=== PATIENT | female | born 1975 | race Caucasian/White ===

== ENCOUNTER 2016-10-17 19:58 | Emergency (ER) | payer MEDICAID ==
[~2016-10-17] VITALS: Ht 152.4 cm; Wt 60.8 kg
[2016-10-17 20:04] VITALS: BP 134/86
[2016-10-17 20:42] LABS: BASOPHILS # (AUTO) 0.2 K/uL (0.00-0.22); EOSINOPHILS # (AUTO) 0.5 K/uL (0-0.4); EOSINOPHILS % (AUTO) 6.1 % (0.0-4.0); HEMATOCRIT 36.1 % (36-48); LYMPHOCYTES # (AUTO) 3.1 K/uL (2.5-16.5); LYMPHOCYTES % (AUTO) 39.4 % (20.5-51.1); MEAN CORPUSCULAR HEMOGLOBIN 31 pg (27-31); MEAN CORPUSCULAR HGB CONC 33 g/dL (33-37); MEAN CORPUSCULAR VOLUME 94 fL (80-94); MONOCYTES # (AUTO) 0.7 K/uL (0.8-1.0); MONOCYTES % (AUTO) 9.1 % (1.7-9.3); NEUTROPHILS # (AUTO) 3.3 K/uL (1.8-7.7); NEUTROPHILS % (AUTO) 43.4 % (42.2-75.2); PLATELET COUNT (AUTO) 216 K/uL (140-450); RED BLOOD CELL COUNT(AUTO) 3.86 MIL/uL (4.20-5.40); RED CELL DISTRIBUTION WIDTH 12.1 % (11.6-13.7); WHITE BLOOD COUNT (AUTO) 7.8 K/uL (4.8-10.8)
[2016-10-17 21:03] LABS: PARTIAL THROMBOPLASTIN TIME 23.5 secs (22-35.6)
[2016-10-17 21:12] LABS: ANION GAP 11.3 (8-16); CALCIUM 8.8 mg/dL (8.5-10.1); CARBON DIOXIDE 27.6 mmol/L (21-32); CREATININE 0.9 mg/dL (0.6-1.3); POTASSIUM 3.9 mmol/L (3.5-5.1)
[2016-10-17 21:14] LABS: PROTHROMBIN TIME 9.6 secs (10.8-13.4)
[2016-10-17 21:19] LABS: ALBUMIN 3.9 g/dL (3.4-5.0); TOTAL BILIRUBIN 0.3 mg/dL (0.0-1.0); TOTAL PROTEIN, SERUM 7.3 g/dL (6.4-8.2)
--- NOTE | 2016-10-17 23:42 | NUR ---
TO ER BED4
--- NOTE | 2016-10-17 23:46 | NUR ---
PATIENT PRESENTS TO ED WITH C/O BACK PAIN AND DIFF BREATHING WHEN BACK HURTS AND LEFT ARM HURTS WELL. PT DENIES N/V/D; SKIN IS PINK/WARM/DRY; AAOX4 WITH EVEN AND STEADY GAIT; LUNGS CLEAR BL; HR EVEN AND REGULAR; PT DENIES ANY FEVER, CP, OR COUGH AT THIS TIME; PATIENT STATES PAIN OF 8/10 AT THIS TIME; VSS; PATIENT POSITIONED FOR COMFORT; HOB ELEVATED; BEDRAILS UP X2; BED DOWN. ER MD MADE AWARE OF PT STATUS.
--- NOTE | 2016-10-18 00:40 | NUR ---
DR ARGUELLO AT BEDSIDE
[2016-10-18 00:52] VITALS: BP 130/85
--- NOTE | 2016-10-18 00:53 | NUR ---
Patient discharged with v/s stable. Written and verbal after care instructions given and explained. Patient alert, oriented and verbalized understanding of instructions. Ambulatory with steady gait. All questions addressed prior to discharge. ID band removed. Patient advised to follow up with PMD. Rx of CIPRO AND MOTRIN given. Patient educated on indication of medication including possible reaction and side effects. Opportunity to ask questions provided and answered.
== END 2016-10-18 00:53 | disposition home or self-care (01) ==
LOC: MED 19:58
DX: R07.89 Other chest pain (principal); N12 Tubulo-interstitial nephritis, not specified as acute or chronic; Z87.442 Personal history of urinary calculi
CPT/HCPCS: 36415; 71010; 80053; 81002; 81025; 83880; 84484; 85025; 85610; 85730; 93005; 99285

== ENCOUNTER 2021-05-03 20:24 | Emergency (ER) | payer BC, MEDICAID ==
[~2021-05-03] VITALS: Ht 147.3 cm; Wt 62.8 kg
[2021-05-03 20:35] VITALS: BP 155/89
--- NOTE | 2021-05-03 20:48 | NUR ---
PT TAKEN TO BED 3
--- NOTE | 2021-05-03 21:17 | NUR ---
Dr. Fisher examining patient.
[2021-05-03] MEDS ORDERED: NACL 0.9% 1,000 ML IV ONE (21:20)
[2021-05-03] MEDS ORDERED: ACETAMINOPHEN EXTRA STRENGTH 500 MG TAB PO ONE (21:35)
[2021-05-03 21:46] LABS: BASOPHILS % (AUTO) 0.4 % (0.0-2.0); EOSINOPHILS % (AUTO) 0.4 % (0.0-4.0); HEMATOCRIT 36.3 % (36-48); HEMOGLOBIN 12.1 g/dL (12.0-16.0); LYMPHOCYTES # (AUTO) 1.7 K/uL (2.5-16.5); LYMPHOCYTES % (AUTO) 16.7 % (20.5-51.1); MEAN CORPUSCULAR HEMOGLOBIN 31 pg (27-31); MEAN CORPUSCULAR HGB CONC 34 g/dL (33-37); MEAN CORPUSCULAR VOLUME 92.9 fL (80-94); MONOCYTES # (AUTO) 0.6 K/uL (0.8-1.0); MONOCYTES % (AUTO) 5.4 % (1.7-9.3); NEUTROPHILS # (AUTO) 7.8 K/uL (1.8-7.7); NEUTROPHILS % (AUTO) 77.1 % (42.2-75.2); PLATELET COUNT (AUTO) 268 K/uL (140-450); RED BLOOD CELL COUNT(AUTO) 3.91 MIL/uL (4.20-5.40); RED CELL DISTRIBUTION WIDTH 13.3 % (11.6-13.7); WHITE BLOOD COUNT (AUTO) 10.1 K/uL (4.8-10.8)
--- NOTE | 2021-05-03 22:30 | NUR ---
PATIENT AMBULATED TO THE BATHROOM AND COLLECTED URINE FROM PATIENT.
[2021-05-03 23:30] LABS: ANION GAP 14.1 (8-16); CARBON DIOXIDE 26.4 mmol/L (21-32); POTASSIUM 3.5 mmol/L (3.5-5.1); TOTAL BILIRUBIN 0.3 mg/dL (0.0-1.0)
--- NOTE | 2021-05-04 00:08 | NUR ---
ERMD AT BEDSIDE FOR RE-EXAMINATION OF PATIENT.
--- NOTE | 2021-05-04 00:22 | NUR ---
IV removed, catheter intact and site benign. Applied folded 4x4 gauze and tape to stop bleeding.
--- NOTE | 2021-05-04 00:49 | NUR ---
Patient discharged with v/s stable. Written and verbal after care instructions given and explained. Patient verbalized understanding. Ambulatory with steady gait. ID band removed. All questions addressed prior to discharge. Advised to follow up with PMD.
[2021-05-04 00:58] VITALS: BP 130/77
== END 2021-05-04 00:49 | disposition home or self-care (01) ==
LOC: MED 20:24
DX: R10.13 Epigastric pain (principal); R50.9 Fever, unspecified; R53.1 Weakness; R22.0 Localized swelling, mass and lump, head; Z20.822 Contact with and (suspected) exposure to COVID-19
CPT/HCPCS: 36415; 71045; 80053; 81002; 84484; 85025; 87426; 87804; 96360; 99284; J7030; Q0092

== ENCOUNTER 2021-08-28 14:46 | Inpatient (IN) | payer BC, SELFPAY ==
[~2021-08-28] VITALS: Ht 154.9 cm; Wt 66.2 kg
[2021-08-28 14:51] VITALS: BP 155/95
--- NOTE | 2021-08-28 14:58 | NUR ---
PT AMBULATED TO BED 12
--- NOTE | 2021-08-28 15:07 | NUR ---
45 Y/O FEMALE BIB C/O OF EPIGASTRIC PAIN X 1 HOUR WITH NAUSEA . PT STATES RADIATING PAIN TO THE UPPER LEFT SHOULDER AND CHILLS. PT ABDOMEN IS SEOFT, TENDER TO TOUCH. ACTIVE BOWEL SOUNDS IN ALL FOUR QUADRANTS. LAST BOWEL MOVEMENT X YESTERDAY. PT REPORTS TAKING IBUPROFEN WITH MILD RELIEF. DENIES V/D; SKIN IS PINK/WARM/DRY; AAOX4 WITH EVEN AND STEADY GAIT; LUNGS CLEAR BL; HR EVEN AND REGULAR; PT DENIES ANY FEVER, CP, SOB, OR COUGH AT THIS TIME; PATIENT STATES PAIN OF 10/10 AT THIS TIME; VSS; PATIENT POSITIONED FOR COMFORT; HOB ELEVATED; BEDRAILS UP X1; BED DOWN. ER MD MADE AWARE OF PT STATUS. PMEDHX: DENIES NKA
[2021-08-28] MEDS ORDERED: FAMOTIDINE 20 MG TAB PO ONE (15:10)
[2021-08-28] MEDS ORDERED: ALUMINUM HYD/MAG/SIMETHICONE 30 ML UDC PO ONE (15:10)
[2021-08-28 15:16] LABS: BILIRUBIN,URINE NEGATIVE (NEGATIVE); BLOOD, URINE NEGATIVE (NEGATIVE); COLOR,URINE YELLOW (YELLOW); LEUKOCYTE ESTERASE ,URINE TRACE (NEGATIVE); NITRITE, URINE POSITIVE (NEGATIVE); UGLUCOSE NEGATIVE (NEGATIVE)
[2021-08-28 15:20] LABS: APPEARANCE,URINE HAZY (CLEAR)
[2021-08-28 15:31] LABS: RBC,URINE NONE SEEN /HPF (0-5)
--- NOTE | 2021-08-28 15:43 | NUR ---
labs drawn at bedside, left with phleb at this time
[2021-08-28 15:55] LABS: BASOPHILS # (AUTO) 0.1 K/uL (0.00-0.22); BASOPHILS % (AUTO) 0.4 % (0.0-2.0); EOSINOPHILS # (AUTO) 0.1 K/uL (0-0.4); EOSINOPHILS % (AUTO) 0.5 % (0.0-4.0); HEMATOCRIT 33.3 % (36-48); LYMPHOCYTES # (AUTO) 1.1 K/uL (2.5-16.5); LYMPHOCYTES % (AUTO) 7.5 % (20.5-51.1); MEAN CORPUSCULAR HEMOGLOBIN 30 pg (27-31); MEAN CORPUSCULAR HGB CONC 33 g/dL (33-37); MEAN CORPUSCULAR VOLUME 89.8 fL (80-94); MONOCYTES # (AUTO) 0.6 K/uL (0.8-1.0); MONOCYTES % (AUTO) 4.2 % (1.7-9.3); NEUTROPHILS # (AUTO) 12.7 K/uL (1.8-7.7); NEUTROPHILS % (AUTO) 87.4 % (42.2-75.2); PLATELET COUNT (AUTO) 232 K/uL (140-450); RED BLOOD CELL COUNT(AUTO) 3.71 MIL/uL (4.20-5.40); RED CELL DISTRIBUTION WIDTH 13.8 % (11.6-13.7); WHITE BLOOD COUNT (AUTO) 14.5 K/uL (4.8-10.8)
[2021-08-28 16:25] LABS: ALBUMIN 3.5 g/dL (3.4-5.0); ANION GAP 14.2 (8-16); CARBON DIOXIDE 25.2 mmol/L (21-32); CREATININE 0.8 mg/dL (0.6-1.3); POTASSIUM 3.4 mmol/L (3.5-5.1); TOTAL BILIRUBIN 0.5 mg/dL (0.0-1.0)
[2021-08-28] MEDS ORDERED: cefTRIAXone 1,000 MG VIAL ONE (17:28)
[2021-08-28] MEDS ORDERED: metroNIDAZOLE 500 MG/NS PREMIX 100 ML IV ONE (18:05)
--- NOTE | 2021-08-28 18:22 | NUR ---
germaine swabbed and taken to lab
[2021-08-28] MEDS ORDERED: DEXT 5% / NACL 0.9% 500 ML IV ONE (19:05)
[2021-08-28] MEDS ORDERED: MORPHINE SULFATE 2 MG/ML SYR IVP PRN (19:05)
--- NOTE | 2021-08-28 19:24 | NUR ---
report given to roman merchant
--- NOTE | 2021-08-28 19:43 | NUR ---
DR TERESA (SURGEON) AT BEDSIDE EXAMINING PT
--- NOTE | 2021-08-28 21:16 | NUR ---
ORAL CONTRAST GIVEN TO PT BY RADIOLOGY
[2021-08-28] MEDS ORDERED: DOCUSATE SODIUM 100 MG GELCAP PO PRN (21:55)
[2021-08-28] MEDS ORDERED: guaiFENesin DM 200/20 MG-10 ML 10 ML UDC PO PRN (21:55)
[2021-08-28] MEDS ORDERED: ZOLPIDEM 5 MG TAB PO PRN (21:55)
[2021-08-28] MEDS ORDERED: POTASSIUM CHLORIDE 10 MEQ TABER PO PRN (21:55)
[2021-08-28] MEDS ORDERED: ONDANSETRON 4 MG/2 ML VIAL IM/IVP PRN (21:55)
[2021-08-28] MEDS: DEXT 5% /NACL 0.9% 1,000 ML IV SCH (21:55)
[2021-08-28] MEDS ORDERED: ACETAMINOPHEN 325 MG TAB PO PRN (21:55)
[2021-08-28] MEDS ORDERED: HYDROcodone/APAP 7.5/325 MG 1 TAB PO PRN (21:55)
--- NOTE | 2021-08-28 22:29 | NUR ---
Patient will be admitted to care of DR ARIAS. Admited to TELE. Will go to room 120B. Belongings list completed. Report to MICHELLE PABLO.
[2021-08-28 22:40] VITALS: BP 147/77
--- NOTE | 2021-08-28 22:40 | NUR ---
RECEIVED REPORT FROM ER NURSE FOR CONTINUITY OF CARE.PT AWAKE, ALERT AND ORIENTED. PT ON ROOM AIR, BREATHING EQUAL AND UNLABORED.IV ON R AC G20, INFUSING WELL.PT AFEBRILE, SR 86 ON TELE. SKIN WARM,DRY AND INTACT. DENIES PAIN AT THE MOMENT. MRSA SWAB DONE. ORIENTED TO ROOM AND CALL LIGHT.BED IN LOW AND LOCKED POSITION. ALL SAFETY PRECAUTIONS IN PLACE.WILL CONTINUE TO MONITOR.
[2021-08-28 22:51] LABS: CHOL/HDL RATIO 4.6 (1-4.5); FREE T4 (FREE THYROXINE) 1.21 ng/dL (0.76-1.46); THYROID STIMULATING HORMONE 2.09 uIU/mL (0.34-3.74)
[2021-08-28 23:02] LABS: PROTHROMBIN TIME 9.4 secs (10.8-13.4)
[2021-08-28 23:20] LABS: BARBITURATE, URINE NEGATIVE ng/ml (NEG <=200); BENZODIAZEPINE, URINE NEGATIVE ng/mL (NEG <=200); CANNABINOID, URINE NEGATIVE ng/mL (NEG <=50); COCAINE, URINE NEGATIVE ng/mL (NEG <=300); OPIATE, URINE NEGATIVE ng/mL (NEG <=2000); PHENCYCLIDINE SCREEN,URINE NEGATIVE ng/mL (NEG <=25)
[2021-08-28] MEDS ORDERED: PIPERACILLIN/TAZOBACTAM 3.375 GM VIAL IV ONE (23:50)
--- NOTE | 2021-08-29 00:20 | NUR ---
PT WAS PICKED UP BY RADIOLOGY AND TRANSPORTED FOR CT OF ABDOMEN.PT AMBULATED TO WHEELCHAIR. NO DISTRESS NOTED. WILL CONTINUE TO MONITOR.
[2021-08-29] MEDS: PIPERACILLIN/TAZOBACTAM 3.375 GM in DEXTROSE 5% 50 ML IV SCH ×5 (00:33→23:35)
--- NOTE | 2021-08-29 00:45 | NUR ---
SCHEDULED ANTIBIOTICS GIVEN. PT TOLERATED WELL.NO DISTRESS NOTED.WILL CONTINUE TO MONITOR.
--- NOTE | 2021-08-29 00:45 | NUR ---
PT CAME BACK FROM CT. PT NOT IN ANY DISTRESS. WILL CONTINUE TO MONITOR.
[2021-08-29 04:00] VITALS: BP 152/82
[2021-08-29 05:21] LABS: CARBON DIOXIDE 25.4 mmol/L (21-32); CREATININE 0.7 mg/dL (0.6-1.3); POTASSIUM 3.4 mmol/L (3.5-5.1)
[2021-08-29 05:46] LABS: BASOPHILS % (AUTO) 0.8 % (0.0-2.0); EOSINOPHILS # (AUTO) 0.1 K/uL (0-0.4); EOSINOPHILS % (AUTO) 2.1 % (0.0-4.0); HEMATOCRIT 31.9 % (36-48); HEMOGLOBIN 10.6 g/dL (12.0-16.0); LYMPHOCYTES # (AUTO) 1.4 K/uL (2.5-16.5); LYMPHOCYTES % (AUTO) 24.8 % (20.5-51.1); MEAN CORPUSCULAR HEMOGLOBIN 30 pg (27-31); MEAN CORPUSCULAR HGB CONC 33 g/dL (33-37); MEAN CORPUSCULAR VOLUME 90.4 fL (80-94); MONOCYTES # (AUTO) 0.6 K/uL (0.8-1.0); MONOCYTES % (AUTO) 9.9 % (1.7-9.3); NEUTROPHILS # (AUTO) 3.6 K/uL (1.8-7.7); NEUTROPHILS % (AUTO) 62.4 % (42.2-75.2); PLATELET COUNT (AUTO) 223 K/uL (140-450); RED BLOOD CELL COUNT(AUTO) 3.53 MIL/uL (4.20-5.40); RED CELL DISTRIBUTION WIDTH 13.9 % (11.6-13.7); WHITE BLOOD COUNT (AUTO) 5.8 K/uL (4.8-10.8)
[2021-08-29] MEDS ORDERED: PIPERACILLIN/TAZOBACTAM 3.375 GM VIAL IV ONE (06:07)
[2021-08-29] MEDS: DEXT 5% /NACL 0.9% 1,000 ML IV SCH ×3 (06:15→23:30)
[2021-08-29] MEDS ORDERED: MORPHINE SULFATE 2 MG/ML SYR IVP PRN (07:18)
--- NOTE | 2021-08-29 07:30 | NUR ---
RECEIVED REPORT FROM MAINTENANCE HELPER NURSE FOR CONTINUITY OF CARE. PT ASLEEP IN BED. BREATHING SYMMETRICAL. FLACC O. RAC 20G RUNNING D5NS AT 120CC/HR. CALL LIGHT WITHIN REACH. ALL SAFETY MEASURES IN PLACE.
--- NOTE | 2021-08-29 07:37 | NUR ---
ENDORSED TO AM SHIFT NURSE FOR CONTINUITY OF CARE. PT IS STABLE.
[2021-08-29 08:00] VITALS: BP 125/75
[2021-08-29] MEDS: PANTOPRAZOLE 40 MG TABEC PO SCH (09:03)
[2021-08-29] MEDS ORDERED: SEVOFLURANE 250 ML BTL INH ONE (09:30)
--- NOTE | 2021-08-29 10:11 | NUR ---
PT TRANSFERRED TO [facility]
--- NOTE | 2021-08-29 14:42 | NUR ---
PT IN BED, AWAKE/ALERT, POLISH SPEAKING. BREATHING SYMMETRICAL. DENIES PAIN AT THIS TIME. FAMILY AT BEDSIDE DOING VISIT. CALL LIGHT WITHIN REACH. ALL SAFETY MEASURES IN PLACE. ENCOURAGED TO ALWAYS CALL FOR ASSISTANCE.
[2021-08-29 16:00] VITALS: BP 127/78
--- NOTE | 2021-08-29 16:17 | NUR ---
DC PLANN[age] YRS OLD FEMALE PATIENT WAS ADMITTED FROM HOME WITH A DX OF CHOLECYSTITIS. PATIENT HAS NO MEDICAL HISTORY. CXR NEGATIVE. ABD US AND CT ABD SHOWED STONES AND SLUDGE IN AN INCOMPLETELY DISTENDED GALLBLADDER, NEGATIVE SONOGRAPHIC OLMOS SIGN . RAPID COVID TEST NEGATIVE. ADMINISTERED IVF, IV ABX ZOSYN. CONSULTED WITH SURGEON DR TERESA. DC PLAN TO GO HOME WHEN STABLE. CM TO FOLLOW.
--- NOTE | 2021-08-29 16:52 | NUR ---
PATIENT HAS BEEN SCREENED AND CATEGORIZED LOW NUTRITION RISK. PATIENT WILL BE SEEN WITHIN 7 DAYS OF ADMISSION. 09/04/[address]
--- NOTE | 2021-08-29 17:13 | NUR ---
PT AWAKE IN BED, VISITOR AT BEDSIDE. BREATHING SYMMETRICAL. DENIES PAIN AT THIS TIME. IV LINE ON RAC INTACT AND PATENT, NO S/SX OF INFILTRATION NOTED. CALL LIGHT PLACED WITHIN REACH. ENCOURAGED TO ALWAYS CALL FOR ASSISTANCE.
--- NOTE | 2021-08-29 19:10 | NUR ---
ENDORSED PT TO METALLURGICAL OR MATERIALS TECHNICIAN NURSE. PT IN STABLE CONDITION.
--- NOTE | 2021-08-29 19:15 | NUR ---
RECEIVED REPORT FROM MORNING RN. PATIENT RESTING ON BED, AT BEDSIDE VISITING. IV FLUIDS ONGOING AT DESIRED RATE. BREATHING EVEN AND UNLABORED. NO COMPLAINTS OF PAIN. WILL CONTINUE TO MONITOR AND ASSESS PATIENT.
[2021-08-29 20:00] VITALS: BP 138/74
--- NOTE | 2021-08-29 23:20 | NUR ---
PATIENT ASLEEP ON BED, BREATHING EVEN AND UNLABORED. NEW IV FLUID HUNG, REGULATED AT DESIRED RATE. NO PAIN COMPLAINT. WILL CONTINUE TO MONITOR AND ASSESS.
[2021-08-30 04:00] VITALS: BP 138/84
[2021-08-30] MEDS: PIPERACILLIN/TAZOBACTAM 3.375 GM in DEXTROSE 5% 50 ML IV SCH ×3 (05:36→17:30)
[2021-08-30 05:44] LABS: ANION GAP 11.3 (8-16); CARBON DIOXIDE 26.4 mmol/L (21-32); CREATININE 0.8 mg/dL (0.6-1.3); POTASSIUM 3.7 mmol/L (3.5-5.1)
[2021-08-30 05:48] LABS: BASOPHILS # (AUTO) 0.1 K/uL (0.00-0.22); EOSINOPHILS # (AUTO) 0.2 K/uL (0-0.4); EOSINOPHILS % (AUTO) 4.7 % (0.0-4.0); HEMATOCRIT 32.8 % (36-48); HEMOGLOBIN 10.7 g/dL (12.0-16.0); LYMPHOCYTES # (AUTO) 1.7 K/uL (2.5-16.5); LYMPHOCYTES % (AUTO) 33.7 % (20.5-51.1); MEAN CORPUSCULAR HEMOGLOBIN 30 pg (27-31); MEAN CORPUSCULAR HGB CONC 33 g/dL (33-37); MEAN CORPUSCULAR VOLUME 91.4 fL (80-94); MONOCYTES # (AUTO) 0.5 K/uL (0.8-1.0); MONOCYTES % (AUTO) 9.1 % (1.7-9.3); NEUTROPHILS # (AUTO) 2.6 K/uL (1.8-7.7); NEUTROPHILS % (AUTO) 51.5 % (42.2-75.2); PLATELET COUNT (AUTO) 211 K/uL (140-450); RED BLOOD CELL COUNT(AUTO) 3.59 MIL/uL (4.20-5.40); RED CELL DISTRIBUTION WIDTH 13.8 % (11.6-13.7); WHITE BLOOD COUNT (AUTO) 5.1 K/uL (4.8-10.8)
--- NOTE | 2021-08-30 07:24 | NUR ---
RECEIVED BEDSIDE REPORT FROM GEOTECHNICAL FIELD TECHNICIAN NURSE. PT RESTING. PT BREATHING IS EVEN AND UNLABORED. NO SIGNS OF DISTRESS NOTED. PT IS ON RA. PT IS STABLE.
[2021-08-30 08:00] VITALS: BP 127/82
[2021-08-30] MEDS ORDERED: fentaNYL citrate 0.05 MG/ML VIAL ONE (08:39)
[2021-08-30] MEDS ORDERED: SUCCINYLCHOLINE CHLORIDE 200 MG/10 ML VIAL IVP ONE (08:39)
[2021-08-30] MEDS ORDERED: PROPOFOL 200 MG/20 ML VIAL IV ONE (08:39)
[2021-08-30] MEDS ORDERED: MEPERIDINE 25 MG/ML SYR IVP PRN (08:50)
[2021-08-30] MEDS ORDERED: LACTATED RINGERS 1,000 ML IV SCH (08:50)
[2021-08-30] MEDS ORDERED: HYDROmorphone 1 MG/ML AMP IVP PRN ×2 (08:50→11:15)
[2021-08-30] MEDS ORDERED: diphenhydrAMINE 50 MG/ML VIAL IVP PRN (08:50)
[2021-08-30] MEDS ORDERED: ONDANSETRON 4 MG/2 ML VIAL IVP PRN ×2 (08:50→11:15)
[2021-08-30] MEDS: PANTOPRAZOLE 40 MG TABEC PO SCH (09:00)
[2021-08-30 09:06] LABS: T4 (THYROXINE) 9.7 ug/dL (4.5-12.0)
[2021-08-30] MEDS ORDERED: BUPIVACAINE MPF 0.25% 10 ML VIAL INJ ONE (09:06)
[2021-08-30] MEDS ORDERED: LIDOCAINE MPF 1% 10 ML ONE (09:08)
[2021-08-30] MEDS ORDERED: SEVOFLURANE 250 ML BTL INH ONE (09:30)
[2021-08-30] MEDS ORDERED: ROCURONIUM 50 MG/5 ML VIAL IV ONE (09:47)
[2021-08-30] MEDS ORDERED: ONDANSETRON 4 MG/2 ML VIAL ONE (09:48)
--- NOTE | 2021-08-30 10:00 | NUR ---
PT IS PICKED UP FOR SURGERY FOR A LAP CHOLY. PT BREATHING IS EVEN AND UNLABORED. NO SIGNS OF DISTRESS NOTED. PT IS ON RA. PT IS STABLE.
[2021-08-30] MEDS ORDERED: SUGAMMADEX SODIUM 200 MG/2 ML VIAL IV ONE (10:46)
[2021-08-30] MEDS ORDERED: MEPERIDINE 25 MG/ML SYR ONE (10:47)
[2021-08-30] MEDS ORDERED: DEXAMETHASONE 4 MG/ML VIAL ONE (10:52)
[2021-08-30] MEDS ORDERED: DEXT 5% / NACL 0.45% 1,000 ML IV SCH (11:15)
--- NOTE | 2021-08-30 12:00 | NUR ---
PT BACK FROM SURGERY. VS ARE WNL BUT BP IS A BIT HIGH. WILL CONTNUE TO MONITOR. PT BREATHING IS EVEN AND UNLABORED. NO SIGNS OF DISTRESS NOTED. PT IS ON RA. PT IS STABLE.
[2021-08-30] MEDS ORDERED: KETOROLAC 30 MG/ML VIAL IVP SCH (13:00)
[2021-08-30] MEDS ORDERED: TRAM50TA3 PO (13:53)
--- NOTE | 2021-08-30 14:00 | NUR ---
PT WILL DC HOME ONCE BP IS WNL. PT RESTING. PT BREATHING IS EVEN AND UNLABORED. NO SIGNS OF DISTRESS NOTED. PT IS ON RA. PT IS STABLE.
[2021-08-30] MEDS ORDERED: CIPR500T4 PO (15:32)
--- NOTE | 2021-08-30 15:32 | NUR ---
ENDORSED PT TO HARISH PABLO FOR CONTINUITY OF CARE. POC DISCUSSED.
[2021-08-30] MEDS ORDERED: IBUP-2213 PO (15:33)
--- NOTE | 2021-08-30 15:33 | NUR ---
RECEIVED REPORT FROM BEV REID. PT IS AOx4, NAD NOTED. PT AWARE OF POC, WILL CONTINUE TO MONITOR.
[2021-08-30 15:39] VITALS: BP 154/90
[2021-08-30] MEDS ORDERED: CLONIDINE HYDROCHLORIDE 0.1 MG TAB PO PRN (15:50)
[2021-08-30 16:00] VITALS: BP 158/82
--- NOTE | 2021-08-30 18:09 | NUR ---
PT TOLERATED DINNER, BP 147/92, CLEARED FOR DISCHARGE. IV DCED, DISCHARGE PAPERWORK SIGNED. PT AWARE OF POC, QUESTIONS/CONCERNS ANSWERED AND TO BE TAKEN HOME BY .
[2021-08-31] MEDS ORDERED: DEXT 5% / NACL 0.45% 1,000 ML IV SCH (06:01)
== END 2021-08-30 18:25 | disposition home or self-care (01) | DRG 854 ==
LOC: MED 14:46 → MTU 19:05
PROVIDERS: ADMIT Family Medicine; ATTEND Family Medicine
PROC: 0FB04ZZ Excision of Liver, Percutaneous Endoscopic Approach (ICD-10-PCS; 2021-08-30)
PROC: 0FT44ZZ Resection of Gallbladder, Percutaneous Endoscopic Approach (ICD-10-PCS; principal; 2021-08-30 10:00)
DX: A41.9 Sepsis, unspecified organism (principal); N39.0 Urinary tract infection, site not specified; Q44.1 Other congenital malformations of gallbladder; K80.00 Calculus of gallbladder with acute cholecystitis without obstruction; E87.6 Hypokalemia; R74.01 Elevation of levels of liver transaminase levels; I10 Essential (primary) hypertension; Z20.822 Contact with and (suspected) exposure to COVID-19
CPT/HCPCS: 36415; 71045; 76700; 80048; 80053; 80305; 81001; 82150; 82374; 83036; 83690; 83735; 83880; 84100; 84436; 84439; 84443; 84479; 84484; 85025; 85610; 85730; 87081; 87086; 96365; 96375; 99285; J0330; J0696; J1100; J1885; J2001; J2175; J2405; J2543; J2704; J3010; J3490; J7030; J7060; Q0092